=== PATIENT | female | born 2000 ===

== ENCOUNTER 2023-11-07 16:52 | Emergency (ER) | payer MEDICAID ==
[~2023-11-07] VITALS: Ht 157.5 cm; Wt 47.1 kg
[2023-11-07 16:54] VITALS: BP 135/88; PULSE 112; RESP 16; TEMP 98.8; O2SAT 97
== END 2023-11-07 18:11 | disposition left against medical advice (07) ==
LOC: ER 16:54
DX: R10.84 Generalized abdominal pain (principal); K92.1 Melena; Z53.21 Procedure and treatment not carried out due to patient leaving prior to being seen by health care provider
CPT/HCPCS: 99281